=== PATIENT | male | born 1995 | race Caucasian/White ===

== ENCOUNTER 2016-12-20 21:59 | Emergency (ER) | payer SELFPAY ==
[2016-12-20 22:25] VITALS: BP 130/85
[2016-12-20] MEDS ORDERED: cefTRIAXone SODIUM 1 GM VIAL ONE (22:43)
[2016-12-20] MEDS ORDERED: Lidocaine 1% 5ml(IM or SUTURE)(PAIN CLINIC) ONE (22:44)
[2016-12-20] MEDS ORDERED: cefTRIAXone SODIUM 1 GM VIAL IM ONE (22:47)
[2016-12-20] MEDS ORDERED: ACETAMINOPHEN 325 MG TABLET PO ONE (22:48)
[2016-12-20] MEDS ORDERED: DOXYCYCLINE MONOHYDRATE 100 MG CAPSULE PO ONE (22:48)
[2016-12-20] MEDS ORDERED: IBUPROFEN 400 MG TABLET PO ONE (22:48)
[2016-12-20] MEDS ORDERED: Lidocaine 1% 5ml(IM or SUTURE)(PAIN CLINIC) IJ ONE (22:53)
--- NOTE | 2016-12-21 01:26 | ED Physician Documentation ---
Abscess - HISTORIAN Historian: patient - HPI Stated Complaint: abcess to right armpit Chief Complaint: Abscess Additional Information: x 3 days Onset: days ago (3) Timing: still present Duration: worse Location: other (right axilla) Quality: painful Identified Cause?: No When Did Symptoms Start: 12/18/16 Where: home Context: Medication Exposure: none Context: Food Exposure: none Context: Other Exposure: spider bite (?). denies: bee sting, wasp sting, ant bite Further Comments: no - ROS CONST: none CVS/RESP: none EYES/ENT: none GI/: none MS/SKIN/LYMPH: none NEURO/PSYCH: none - PAST HX Past History: none Other History: none Surgeries/Procedures: No Allergies/Adverse Reactions: Allergies Allergy/AdvReac Type Severity Reaction Status Date / Time No Known Allergies Allergy Verified 12/20/16 22:19 Home Medications: Ambulatory Orders Medication Instructions Recorded NK [NK] 02/04/15 - SOCIAL HX Smoking History: cigarettes Alcohol Use: occasionally Drug Use: methamphetamines - FAMILY HX Family History: none - VITAL SIGNS Vital Signs: Vital Signs Temp Pulse Resp BP Pulse Ox 98.6 F 74 16 130/85 99 12/20/16 22:20 12/20/16 23:10 12/20/16 23:10 12/20/16 23:10 12/20/16 23:10 - REVIEWED ASSESSMENTS Nursing Assessment Reviewed: Yes Vitals Reviewed: Yes Progress - Results/Orders Results/Orders: none ordered - Progress Progress: pt. given 1 gram rocephin im, 100 mg doxycycline p.o. and 800 mg motrin p.o. in er Critical Care Note - Critical Care Note Total Time (mins): 0 ED Results Lab/Radiology - Lab Results Lab Results: none taken - Radiology Radiology Impressions: one taken - Orders Orders: ED Orders Category Date Time Status Acetaminophen [Tylenol] Med 12/20/16 22:48 Discontinued 650 mg PO NOW ONE Doxycycline Monohydrate [Vibramycin] Med 12/20/16 22:48 Discontinued 100 mg PO NOW ONE Ibuprofen [Advil] Med 12/20/16 22:48 Discontinued 800 mg PO NOW ONE Lidocaine 1% 5ml(IM or SUTURE) [Xylocaine] Med 12/20/16 22:44 Discontinued 50 mg .ROUTE .STK-MED ONE Lidocaine 1% 5ml(IM or SUTURE) [Xylocaine] Med 12/20/16 22:53 Discontinued 50 mg IJ NOW ONE cefTRIAXone SODIUM [Rocephin] Med 12/20/16 22:43 Discontinued 1 gm .ROUTE .STK-MED ONE cefTRIAXone SODIUM [Rocephin] Med 12/20/16 22:47 Discontinued 1 gm IM NOW ONE Abscess Physical Exam - EXAM General Appearance: alert, mild distress Skin: warm,dry, other (small 1-2 cm flocculent abscess, nonindurated right axilla) Location: other (right axilla) Character: other (pustular) Symptoms: warmth, tenderness Extremities: nml ROM, no edema EENT: eyes nml inspection, lips nml, gums nml, pharynx nml Neck: trachea midline, no swelling Respiratory: no resp distress, chest non-tender CVS: reg. rate & rhythm, heart sounds nml Abdomen: non-tender, no organomegaly, nml bowel sounds Neuro/Psych: oriented x3, CN's nml as tested, motor nml, sensation nml, mood/ affect nml Discharge Clincal Impression: Abscess Referrals: Primary Doctor,No [Primary Care Provider] - 2 Days Home Medications: Ambulatory Orders NK [NK] 02/04/15 Comments: discharged with scripts for doxycycline 100 mg #20 1 p.o. bid and meloxicam 7.5 mg 1 p.o. bid #14 Condition: Stable Decision to Admit: NO Decision Time: 23:05
== END 2016-12-20 23:10 ==
LOC: ED 21:59
DX: L02.411 Cutaneous abscess of right axilla (principal); F17.210 Nicotine dependence, cigarettes, uncomplicated
CPT/HCPCS: J0696 ×2; 96372; 99283

== ENCOUNTER 2017-08-18 14:33 | Emergency (ER) | payer OTHER ==
[2017-08-18] MEDS ORDERED: ONDANSETRON HCL/PF 4 MG/ 2ML VIAL ONE (14:40)
--- NOTE | 2017-08-18 14:40 | ED Physician Documentation ---
General Adult - HISTORIAN Historian: patient, other (law enforcement) - HPI Stated Complaint: methadone use, anxious Chief Complaint: General Adult Onset: hours Timing: still present Severity: moderate Further Comments: yes (Pt is a 22 yo male brought to ER by law enforcement for [id number] evaluation. Pt appears very anxious on presentation and says this is because he his "coming down from meth.") - ROS CONST: other (anxious) EYES/ENT: none CVS/RESP: none GI/: nausea MS/SKIN/LYMPH: none NEURO/PSYCH: anxiety - PAST HX Past History: other (drug abuse, methamphetamines; anxiety/depression) Allergies/Adverse Reactions: Allergies Allergy/AdvReac Type Severity Reaction Status Date / Time No Known Allergies Allergy Verified 08/18/17 15:02 Home Medications: Ambulatory Orders Medication Instructions Recorded NK [NK] 02/04/15 - SOCIAL HX Smoking History: cigarettes Drug Use: marijuana, methamphetamines - FAMILY HX Family History: No - VITAL SIGNS Vital Signs: Vital Signs Temp Pulse Resp BP Pulse Ox 130/85 12/20/16 23:10 - REVIEWED ASSESSMENTS Nursing Assessment Reviewed: Yes Vitals Reviewed: Yes Progress - Progress Progress: Ativan 2 mg IV in ER NS 1 L IVF x 2 Zofran 4 mg IV in ER UDS non-negative for Marijuana, Amphetamine, Methamphetamine, Benzodiazepine VS improved sensorium improved - EKG/XRAY/CT EKG: NSR (HR=86; normal EKG.) General Adult Physical Exam - PHYSICAL EXAM GENERAL APPEARANCE: moderate distress (anxious; under influence of methamphetamine) EENT: pharynx normal, JOSELIN, dry mucous membranes NECK: normal inspection, supple RESPIRATORY: no resp distress, chest non-tender, breath sounds normal CVS: tachycardia ABDOMEN: soft, no organomegaly, normal bowel sounds BACK: normal inspection, no CVA tenderness SKIN: warm/dry, normal color EXTREMITIES: non-tender, normal range of motion, no evidence of injury NEURO: motor nml, sensation nml, other (anxious; ) Discharge Clincal Impression: Methamphetamine use Referrals: Maya De Jesus MD [Primary Care Provider] - Condition: Stable Disposition: 01 HOME, SELF-CARE Decision to Admit: NO Decision Time: 17:22
[2017-08-18] MEDS ORDERED: 0.9 % SODIUM CHLORIDE 1,000 ML IV ONE ×4 (14:41→15:14)
[2017-08-18] MEDS ORDERED: LORazepam 2 MG/ML VIAL IVP ONE (14:41)
[2017-08-18] MEDS ORDERED: ONDANSETRON HCL/PF 4 MG/ 2ML VIAL IVP ONE (14:41)
[2017-08-18] MEDS ORDERED: LORazepam 2 MG/ML VIAL ONE (14:49)
[2017-08-18 14:54] LABS: BASOPHILS % 0.7 (0.0-1.5); EOSINOPHILS % 4.5 % (0.0-6.8); MEAN CORPUSCULAR HEMOGLOBIN 32.2 pg (28.0-34.0); MEAN CORPUSCULAR VOLUME 90.6 fl (80.0-100.0); MONOCYTES % 6.1 % (0.0-11.0); NEUTROPHILS # 7.4 # k/uL (1.4-7.7)
[2017-08-18 15:03] LABS: eGFR (African) > 60; eGFR (Non-African) > 60
[2017-08-18 17:38] VITALS: BP 119/55
[2017-08-19 06:00] LABS: APPEARANCE,URINE CLOUDY (CLEAR); CANNABINOIDS NON NEGATIVE ng/mL (< 50); COLOR,URINE AMBER (YELLOW); OCCULT BLOOD,URINE NEGATIVE (NEGATIVE); PH URINE 5.5 (5.0 - 8.0); UROBILINOGEN URINE 0.2 Eu (0.2-1.0)
[2017-08-19 06:01] LABS: METHYLENEDIOXYMETHAMPHETAMINE NEGATIVE ng/mL (<500)
[2017-08-21 12:02] LABS: CANNABINOIDS CONFIRMATION >150 ng/mL (<15)
== END 2017-08-18 17:36 | disposition home or self-care (01) ==
LOC: ED 14:33
DX: Z02.89 Encounter for other administrative examinations (principal); F15.90 Other stimulant use, unspecified, uncomplicated; F13.90 Sedative, hypnotic, or anxiolytic use, unspecified, uncomplicated
CPT/HCPCS: 80053; 80320; 80377; 81002; 85025; 93005; 99282; J2060; J2405; J7030; G0480; G0481; S1016

== ENCOUNTER 2017-11-25 09:18 | Emergency (ER) | payer OTHER ==
[2017-11-25] MEDS ORDERED: CLINDAMYCIN PHOSPHATE 300 MG/2 ML VIAL IM ONE (09:43)
[2017-11-25] MEDS ORDERED: KETOROLAC TROMETHAMINE 60 MG/2 ML VIAL IM ONE (09:44)
[2017-11-25 09:59] VITALS: BP 116/76
--- NOTE | 2017-11-25 10:02 | ED Physician Documentation ---
Sore Throat/Dental Pain - HISTORIAN Historian: patient - HPI Stated Complaint: Facial edema Chief Complaint: Dental Pain Onset: days ago (yesterday ) Context: Abscess Further Comments: yes (22 year old male patient presents with left facial edema. Patient states it started yesterday and has become significantly worse. C/O severe pain. Requesting work note and pain medications. Has not seen his dentist.) - ROS CONST: no problems CVS/RESP: none GI/: denies: problems urinating, nausea, vomiting, other MS/SKIN/LYMPH: denies: muscle aches, rash, leg swelling, ankle swelling, other NEURO/PSYCH: none - PAST HX Past History: none Other History: none Allergies/Adverse Reactions: Allergies Allergy/AdvReac Type Severity Reaction Status Date / Time No Known Allergies Allergy Verified 11/25/17 09:28 Home Medications: Ambulatory Orders Medication Instructions Recorded Clindamycin HCl [Cleocin] 300 mg PO TID #30 capsule 11/25/17 - SOCIAL HX Smoking History: cigarettes Drug Use: methamphetamines (hx of abuse) - FAMILY HX Family History: No - VITAL SIGNS Vital Signs: Vital Signs Temp Pulse Resp BP Pulse Ox 98.6 F 81 17 116/76 98 11/25/17 09:23 11/25/17 09:23 11/25/17 09:23 11/25/17 09:23 11/25/17 09:23 - REVIEWED ASSESSMENTS Nursing Assessment Reviewed: Yes Vitals Reviewed: Yes Progress - Progress Progress: Clindamycin IM given in Er and IM toradol for pain. Discussed prescription insurance with patient. Coupon provided for Clindamycin #30 tabs - $31.02 ED Results Lab/Radiology - Orders Orders: ED Orders Category Date Time Status Clindamycin Phosphate [Cleocin] Med 11/25/17 09:43 Discontinued 600 mg IM NOW ONE Ketorolac Tromethamine [Toradol] Med 11/25/17 09:44 Discontinued 60 mg IM NOW ONE Dental Pain Physical Exam - EXAM General Appearance: moderate distress Head/Neck: head nml inspection, trachea midline, no lymphadenopathy, thyroid nml , neck nml inspection Mouth/Throat: lips nml, pharynx nml, voice nml, no drooling, no air way problems , no thrush, membranes nml, gum swelling around teeth (right upper quadrant), widespread dental decay (right upper quadrant - all teeth with decay to gumline #14-18; erythema and edema noted in gumline. Soft tissue in right cheek with edema. ) Respiratory: no resp. distress, breath sounds nml CVS: reg. 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 See your dentist FAISAL! Condition: Stable Disposition: 01 HOME, SELF-CARE Decision to Admit: NO Decision Time: 10:02
== END 2017-11-25 10:05 | disposition home or self-care (01) ==
LOC: ED 09:18
DX: K04.7 Periapical abscess without sinus (principal); K02.9 Dental caries, unspecified
CPT/HCPCS: J1885; J3490; 96372; 99283

== ENCOUNTER 2017-12-30 08:40 | Emergency (ER) | payer SELFPAY ==
[2017-12-30 08:56] VITALS: BP 123/79
--- NOTE | 2017-12-30 09:02 | ED Physician Documentation ---
General Adult - HISTORIAN Historian: patient - HPI Stated Complaint: right facial swelling Chief Complaint: General Adult Additional Information: Facial swelling x 2 days. No pain. - ROS CONST: denies: fever - PAST HX Past History: other (poor dentition) Other History: none Surgeries/Procedures: none Allergies/Adverse Reactions: Allergies Allergy/AdvReac Type Severity Reaction Status Date / Time No Known Allergies Allergy Verified 12/30/17 08:51 Home Medications: Ambulatory Orders Medication Instructions Recorded Amoxicillin 500 mg PO Q8H #30 capsule 12/30/17 - SOCIAL HX Smoking History: non-smoker - FAMILY HX Family History: No - VITAL SIGNS Vital Signs: Vital Signs Temp Pulse Resp BP Pulse Ox 98.4 F 62 16 123/79 99 12/30/17 08:46 12/30/17 08:46 12/30/17 08:46 12/30/17 08:46 12/30/17 08:46 - REVIEWED ASSESSMENTS Nursing Assessment Reviewed: Yes Vitals Reviewed: Yes General Adult Physical Exam - PHYSICAL EXAM GENERAL APPEARANCE: mild distress EENT: eye inspection normal, pharynx normal, no signs of dehydration, other ( very poor dentition. several teeth eroded to gum line. Swelling right mandible. no discreet abscess palpated.) NECK: normal inspection, supple RESPIRATORY: no resp distress BACK: other (movements w/o pain) SKIN: warm/dry, normal color EXTREMITIES: normal range of motion (gait and stance), no evidence of injury NEURO: CN's nml as tested Discharge Clincal Impression: Dental caries Clincal Impression: (Ruled Out): Pain due to dental caries Prescriptions: Amoxicillin 500 mg PO Q8H #30 capsule Referrals: Maya De Jesus MD [Primary Care Provider] - 2 Days Condition: Good Disposition: 01 HOME, SELF-CARE Decision to Admit: NO Decision Time: 09:00
== END 2017-12-30 09:01 | disposition home or self-care (01) ==
LOC: ED 08:40
DX: K02.9 Dental caries, unspecified (principal)
CPT/HCPCS: 99282

== ENCOUNTER 2018-02-05 10:31 | Emergency (ER) | payer SELFPAY ==
--- NOTE | 2018-02-05 10:39 | ED Physician Documentation ---
Sore Throat/Dental Pain - HISTORIAN Historian: patient - HPI Stated Complaint: dental pain Chief Complaint: Dental Pain Onset: days ago (3) Context: Fractured Tooth, Abscess Associated Symptoms: denies: fever, unable to swallow Worsened By: other Further Comments: yes (He has had issues with all of his teeth recently - this is his 3rd ER visit for dental concerns in 4 months. He reports today it is a different tooth than previous visits. States he is trying to get into a dentist but was told they "cant find me on my insurance" He reports 3 days ago he started to notice mild pain on the bottom left area. States over the last two days the pain and swelling have increased. He did not attempt to see his PCP or try OTC meds. He states the pain is a 6-7 on 1/10 scale. No fever.) - ROS CONST: no problems CVS/RESP: none GI/: denies: nausea, vomiting MS/SKIN/LYMPH: denies: rash NEURO/PSYCH: denies: headache - PAST HX Past History: other (multiple issues with dental abcesses and caries ) Other History: none Immunizations: UTD Allergies/Adverse Reactions: Allergies Allergy/AdvReac Type Severity Reaction Status Date / Time No Known Allergies Allergy Verified 02/05/18 10:42 Home Medications: Ambulatory Orders Medication Instructions Recorded NK [NK] 02/05/18 - SOCIAL HX Smoking History: cigarettes Alcohol Use: none Drug Use: none - FAMILY HX Family History: No - VITAL SIGNS Vital Signs: Vital Signs Temp Pulse Resp BP Pulse Ox 123/79 12/30/17 09:01 - REVIEWED ASSESSMENTS Nursing Assessment Reviewed: Yes Vitals Reviewed: Yes Dental Pain Physical Exam - EXAM General Appearance: no acute distress, alert Head/Neck: head nml inspection, facial erythema (mild swelling over left lower jaw ). No: cervical lymphadenopathy Eyes: eyes nml inspection Mouth/Throat: lips nml, pharynx nml, voice nml, no air way problems, gum swelling around teeth (bottom left lower with dental decay, broken tooth and yellow drainge ). No: drooling Ear/Nose: nml inspection Respiratory: no resp. distress, breath sounds nml, respiratory distress CVS: reg. rate & rhythm, heart sounds nml Abdomen: soft, normal bowel sounds, no distension, non-tender Extremities: non-tender, nml ROM Skin: warm/dry, normal color Neuro/Psych: No: weakness, numbness, anxiety, depression Discharge Clincal Impression: Dental abscess, Abscess Referrals: Maya De Jesus MD [Primary Care Provider] - 2 Days Additional Instructions: 1. Augmentin 875 mg/125 mg Take 1 by mouth BID x 10 days 2. Medrol Dose Pack 4 mg Take as directed 3. Warm salt water gargles 4. Tylenol or Ibuprofen as needed 5. See PCP in 2-4 days for pain control plan 6. See Dentist 7. Follow up in ER for any further concerns Condition: Stable Disposition: 01 HOME, SELF-CARE Decision to Admit: NO Date of Decison to Admit: 02/05/18 Decision Time: 11:05
[2018-02-05 10:58] VITALS: BP 138/86
[2018-02-05] MEDS: KETOROLAC TROMETHAMINE 60 MG/2 ML VIAL ONE (11:02)
[2018-02-05] MEDS: KETOROLAC TROMETHAMINE 60 MG/2 ML VIAL IM ONE (11:02)
== END 2018-02-05 11:03 | disposition home or self-care (01) ==
LOC: ED 10:31
DX: K04.7 Periapical abscess without sinus (principal)
CPT/HCPCS: 96372; 99283; J1885

== ENCOUNTER 2018-06-19 02:42 | Emergency (ER) | payer OTHER ==
[2018-06-19] MEDS ORDERED: LIDOCAINE HCL 1% PF 50MG/5ML AMP (IM/SUTURE/PAIN CLINIC) IJ ONE (02:47)
[2018-06-19] MEDS ORDERED: cefTRIAXone SODIUM 1 GM VIAL IM ONE (02:47)
--- NOTE | 2018-06-19 02:48 | ED Physician Documentation ---
Sore Throat/Dental Pain - HISTORIAN Historian: patient - HPI Stated Complaint: dental pain Chief Complaint: Dental Pain Additional Information: Patient presents to ED with a 2 day history of left lower dental pain and swelling. Patient has known dental caries, however, cannot afford to go to the dentist. Denies fever. Context: Fractured Tooth, Abscess, Dental Caries Associated Symptoms: denies: fever Worsened By: heat, cold Further Comments: no - ROS CONST: no problems CVS/RESP: none GI/: denies: nausea, vomiting MS/SKIN/LYMPH: denies: muscle aches NEURO/PSYCH: headache - PAST HX Past History: gum disease Other History: none Allergies/Adverse Reactions: Allergies Allergy/AdvReac Type Severity Reaction Status Date / Time No Known Allergies Allergy Verified 02/05/18 10:42 Home Medications: Ambulatory Orders Medication Instructions Recorded Penicillin V Potassium [Pen V K] 500 mg PO TID #30 tablet 06/19/18 - SOCIAL HX Smoking History: cigarettes, greater than 1 pack/day Drug Use: methamphetamines - FAMILY HX Family History: No - VITAL SIGNS Vital Signs: Vital Signs Temp Pulse Resp BP Pulse Ox 138/86 02/05/18 11:03 - REVIEWED ASSESSMENTS Nursing Assessment Reviewed: Yes Vitals Reviewed: Yes Dental Pain Physical Exam - EXAM General Appearance: no acute distress, alert Head/Neck: mandibular swelling (L) Mouth/Throat: gum swelling around teeth, widespread dental decay Ear/Nose: nml inspection Respiratory: no resp. distress, breath sounds nml, respiratory distress CVS: reg. rate & rhythm, heart sounds nml Abdomen: soft, normal bowel sounds Extremities: non-tender Skin: warm/dry Neuro/Psych: none Discharge Clincal Impression: Dental abscess Prescriptions: Penicillin V Potassium [Pen V K] 500 mg PO TID #30 tablet Referrals: Maya De Jesus MD [Primary Care Provider] - 2 Days Additional Instructions: 1. Take antibiotics as prescribed 2. Follow up with Dentist for tooth extraction as soon as possible 3. Take Ibuprofen and Tylenol for pain 4. Rinse mouth with 1 tsp salt/1tsp baking soda in 1 cup warm water every 6 hours Condition: Stable Decision to Admit: NO Date of Decison to Admit: 06/19/18 Decision Time: 03:02
[2018-06-19] MEDS ORDERED: traMADol HCL 50 MG TABLET PO ONE (02:49)
[2018-06-19 02:55] VITALS: BP 146/85
== END 2018-06-19 03:15 | disposition home or self-care (01) ==
LOC: ED 02:42
DX: K04.7 Periapical abscess without sinus (principal)
CPT/HCPCS: 96372; 99282; J0696

== ENCOUNTER 2018-10-04 18:41 | Emergency (ER) | payer OTHER ==
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
[2018-10-04 22:17] VITALS: BP 134/77
--- NOTE | 2018-10-05 06:26 | Diagnostic Imaging Report ---
RAVEN CL[facility] [address] [facility].[address] [address] Report Submission Date: Oct 04, 2018 7:54:19 PM MUSEUM LIBRARIAN Patient Study Name: XU VALNETIN Date: Oct 04, 2018 7:19:49 PM MUSEUM LIBRARIAN Modality Type: DX Gender: M Description: HAND 3 VIEWS OR MORE : 89 Institution: [facility] Physician: RAVEN CLARK Three views left hand CLINICAL HISTORY: Pain in the 4th and 5th digits. FINDINGS: Examination left hand in palmar, lateral oblique views fails to demonstrate evidence of fracture, dislocation or other bone or joint pathology. Electronically signed on Oct 04, 2018 7:54:19 PM MUSEUM LIBRARIAN by: Jamie RYAN
== END 2018-10-04 21:00 | disposition home or self-care (01) ==
LOC: ED 18:41
DX: S63.92XA Sprain of unspecified part of left wrist and hand, initial encounter (principal); W22.09XA Striking against other stationary object, initial encounter; Y93.89 Activity, other specified; Y92.009 Unspecified place in unspecified non-institutional (private) residence as the place of occurrence of the external cause
CPT/HCPCS: 29280; 73130; 99282; 99283

== ENCOUNTER 2019-05-30 12:08 | Emergency (ER) | payer SELFPAY ==
--- NOTE | 2019-05-30 12:26 | ED Physician Documentation ---
Sore Throat/Dental Pain - HISTORIAN Historian: patient - HPI Stated Complaint: sore throat Chief Complaint: Sore Throat Additional Information: 23 year old male presents with a sore throat that started last night; extensive hx of strep. Onset: hours Context: Possible Infection Associated Symptoms: fever, chills, sore throat Worsened By: nothing - ROS CONST: no problems CVS/RESP: none GI/: denies: nausea, vomiting MS/SKIN/LYMPH: denies: muscle aches NEURO/PSYCH: none - PAST HX Past History: none Other History: none Immunizations: UTD Allergies/Adverse Reactions: Allergies Allergy/AdvReac Type Severity Reaction Status Date / Time No Known Allergies Allergy Verified 05/30/19 12:25 Home Medications: Ambulatory Orders Medication Instructions Recorded Amoxicillin/Potassium Clav 875 each PO BID #20 tablet 05/30/19 [Augmentin 875Mg/125Mg] - SOCIAL HX Smoking History: greater than 1 pack/day Alcohol Use: occasionally Drug Use: none - FAMILY HX Family History: No - VITAL SIGNS Vital Signs: Vital Signs Temp Pulse Resp BP Pulse Ox 98.4 F 78 20 159/109 93 05/30/19 12:32 05/30/19 12:32 05/30/19 12:32 05/30/19 12:32 05/30/19 12:32 - REVIEWED ASSESSMENTS Nursing Assessment Reviewed: Yes Vitals Reviewed: Yes ED Results Lab/Radiology - Orders Orders: ED Orders Category Date Time Status Rapid Strep [GRP A STREP SCREEN] Stat Lab 05/30/19 Ordered Sore throat Physical Exam - EXAM General Appearance: no acute distress, alert Head/Neck: head nml inspection, trachea midline, cervical lymphadenopathy Eyes: eyes nml inspection, PERRL Mouth/Throat: lips nml, gums nml, no air way problems, membranes nml, pharyngeal erythema, tonsillar exudate Ear/Nose: nml inspection Respiratory: breath sounds nml CVS: heart sounds nml Abdomen: soft, normal bowel sounds Extremities: non-tender Skin: warm/dry, normal color Neuro/Psych: oriented x3, mood/affect nml Discharge Clincal Impression: Strep pharyngitis Prescriptions: Amoxicillin/Potassium Clav [Augmentin 875Mg/125Mg] 875 each PO BID #20 tablet Referrals: Maya De Jesus MD [Primary Care Provider] - 2 Days Additional Instructions: Take Augmentin 875mg by mouth twice a day for 10 days Increase water intake Alternate Tylenol and Ibuprofen as needed for discomfort Condition: Good Disposition: 01 HOME, SELF-CARE Decision to Admit: NO Decision Time: 13:08
[2019-05-30 12:29] VITALS: BP 159/109
== END 2019-05-30 12:33 | disposition home or self-care (01) ==
LOC: ED 12:08
DX: J02.0 Streptococcal pharyngitis (principal); F17.210 Nicotine dependence, cigarettes, uncomplicated
CPT/HCPCS: 87880; 99282; 99283

== ENCOUNTER 2019-06-23 16:40 | Emergency (ER) | payer SELFPAY ==
--- NOTE | 2019-06-23 16:44 | ED Physician Documentation ---
General Adult - HISTORIAN Historian: patient - HPI Stated Complaint: vomiting blood Chief Complaint: General Adult Onset: days ago (1) Timing: still present Severity: moderate Further Comments: yes (Pt is a 24 yo male who is a heavy drinker. Last evening he drank a pint of Fireball whiskey as well as beer. He has a pain in his stomach for some time. Today, about 1 hour bell captain, pt vomited what appeared to be blood. There was not a lot, but it was more than simply blood tinged. Pt denies blood in bm's or dark black bm's.) - ROS CONST: no problems EYES/ENT: none CVS/RESP: none GI/: abdominal pain, vomiting MS/SKIN/LYMPH: none - PAST HX Past History: other (methamphetamine abuse) Allergies/Adverse Reactions: Allergies Allergy/AdvReac Type Severity Reaction Status Date / Time No Known Allergies Allergy Verified 06/23/19 16:57 Home Medications: Ambulatory Orders Medication Instructions Recorded NK 06/23/19 - SOCIAL HX Smoking History: cigarettes, greater than 1 pack/day Alcohol Use: heavy Drug Use: methamphetamines (hx, has stopped for > 1 year) - FAMILY HX Family History: No - VITAL SIGNS Vital Signs: Vital Signs Temp Pulse Resp BP Pulse Ox 159/109 05/30/19 12:32 - REVIEWED ASSESSMENTS Nursing Assessment Reviewed: Yes Vitals Reviewed: Yes Progress - Progress Progress: NS 1 L IVF Protonix 40 mg IV improved Avoid alcohol. Follow up with primary provider or return to ER if you need help with avoiding alcohol. Rx Omeprazole 40 mg. Take one by mouth once daily. Follow up with primary provider. Return to ER if symptoms recur or if you have new symptoms or concerns. General Adult Physical Exam - PHYSICAL EXAM GENERAL APPEARANCE: mild distress EENT: pharynx normal NECK: normal inspection, supple RESPIRATORY: no resp distress, chest non-tender, breath sounds normal CVS: reg rate & rhythm, heart sounds normal ABDOMEN: soft, normal bowel sounds, tenderness (diffuse mild abd tenderness). No: rebound BACK: normal inspection, no CVA tenderness SKIN: warm/dry, normal color EXTREMITIES: non-tender, normal range of motion, no evidence of injury NEURO: oriented X3, motor nml, sensation nml Discharge Clincal Impression: gastritis 2nd to alcohol use Referrals: Maya De Jesus MD [Primary Care Provider] - Condition: Stable Disposition: 01 HOME, SELF-CARE Decision to Admit: NO Decision Time: 18:17
[2019-06-23] MEDS ORDERED: 0.9 % SODIUM CHLORIDE 1,000 ML IV ONE (17:05)
[2019-06-23 17:23] LABS: BASOPHILS % 0.6 % (0.0-1.5); NEUTROPHILS # 6.7 # k/uL (1.4-7.7)
[2019-06-23 17:38] LABS: eGFR (Non-African) > 60
[2019-06-23] MEDS ORDERED: PANTOPRAZOLE SODIUM 40 MG in SODIUM CHLORIDE 0.9 % (FLUSH) 10 ML IVP ONE (18:07)
[2019-06-23 18:35] VITALS: BP 127/81
== END 2019-06-23 18:31 | disposition home or self-care (01) ==
LOC: ED 16:40
DX: K29.21 Alcoholic gastritis with bleeding (principal)
CPT/HCPCS: 80053; 80320; 85025; 85610; 85730; 96360; 99283; 99284; J7030; G0480; S1016